=== PATIENT | female | born 1985 | race Caucasian/White ===

== ENCOUNTER 2016-09-26 19:41 | Emergency (ER) | payer OTHER ==
[~2016-09-26] VITALS: Ht 167.6 cm; Wt 140.0 kg
[~2016-09-26 19:41] MED LIST: PREN1TAB49 PO
[2016-09-26 20:14] VITALS: Ht 167.6 cm; Wt 140.0 kg
--- NOTE | 2016-09-26 20:27 | ERD ---
ER Documentation Chief Complaint Date/Time DATE: 09/26/16 TIME: 20:22 Chief Complaint Bug bite 7 days ago. Cellulitis HPI 11-year-old female who presents to the emergency room for near right shoulder/ neck possible bug bite or cellulitis. Patient stated that this started about 7 days ago and swelling is increased gradually. She stated that she probably does need some antibiotics. Denies headache, loss of consciousness, dizziness, blurry vision, changes in vision, photophobia, pain on eye movement, facial pain, ear pain, throat pain, difficulty swallowing, neck pain, neck stiffness, shoulder pain, chest pain, cough, hemoptysis, abdominal pain, back pain, loss of appetite, nausea, vomiting , hematochezia, diarrhea, constipation, urinary symptoms, , the possibility of being , bladder and bowel incontinences, extremity weakness, extremity tenderness, numbness or tingling sensation, difficulty walking, recent travel, recent exposure to illness, recent antibiotic use in the last 3 months, fever, chills. LMP: 09/09/2016 A1 Allergies: No known allergies. Past medical history: Denies. Medication: Ibuprofen. Surgery: 1. 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 Denies smoking, use of alcohol, use illicit drugs. ROS All systems reviewed and are negative except as per history of present illness. Medications Home Meds Active Scripts Ibuprofen* (Motrin*) 800 Mg Tab, 800 MG PO Q6H Y for PAIN AND OR ELEVATED TEMP, #30 TAB Prov:VALERIEILANAUNSAMNATACHA F 09/26/16 Acetaminophen* (Tylenol*) 325 Mg Tablet, 2 TAB PO Q6 Y for PAIN AND OR ELEVATED TEMP, #20 TAB Prov:VALERIEILANAUNSAMNATACHA F 09/26/16 Sulfamethoxazole-Trimethoprim* (Bactrim* DS) 800-160 Mg Tab, 1 TAB PO BID for 7 Days, TAB Prov:VALERIEILANAUNSAMNATACHA F 09/26/16 Cephalexin* (Cephalexin*) 500 Mg Capsule, 500 MG PO Q6 for 7 Days, #28 CAP Prov:PASILABANSAMNATACHA F 09/26/16 Reported Medications Vits W-Ca,Fe,Fa(<1MG) () 1 Tab Tablet, 1 TAB PO DAILY 03/15/11 Allergies Allergies: Coded Allergies: No Known Allergies (Verified Allergy, 03/15/11) Physical Exam Vitals Vital Signs Date Time Temp Pulse Resp B/P Pulse Ox O2 Delivery O2 Flow Rate FiO2 09/26/16 20:14 98.6 86 20 113/71 97 Physical Exam CONSTITUTIONAL: Well-appearing; well-nourished; in no apparent distress. HEAD: Normocephalic; atraumatic. EYES: Conjunctiva clear, sclera non-icteric, EOM intact. PERRL. No pain on eye movement. Patient was observed comfortable. Able to text. Able to read. No neurologic deficits. Ears: Hearing intact. EACs clear, TMs non-bulging, non-inflamed, translucent & mobile, ossicles normal appearance, No obstructions, no erythema, no discharges Nose: No obstructions. No polyps. No external lesions. Mucosa non-inflamed. No external lesions, septum and turbinates normal. No rhinorrhea. No discharges. Frontal sinus is non-tender to palpation. Maxillary sinus is non-tender to palpation. MOUTH: Moist mucous membranes, no lesion, no obstructions, no vesicles, no thrush, patent airway Throat: Uvula in midline. Right tonsil is +1 with no erythema, no exudate. Left tonsil is +1 with no erythema, no exudate. Tolerating secretions well. Good gag reflex. Patent airway. Neck: Supple, without lesions, bruits, or adenopathy. No mass. Thyroid non- enlarged and non-tender to palpation. Good and full range of motion of neck and spine without pain/swelling/discoloration. CHEST: Symmetrical chest. Respirations even and not labored. No retractions noted. CARDIOVASCULAR: Normal S1, S2. RRR. No murmurs, gallops. RESPIRATORY: Normal chest excursion with respiration; breath sounds clear and equal bilaterally; no wheezes, rhonchi, or rales. Breathing even and unlabored. Speaking in clear, full, and complete sentences w/ ease. ABDOMEN: Normal bowel sounds normal. Soft, round, non-distended, non-guarding, no tenderness, no rebound, no organomegaly, no masses, no pulsating abdominal mass. No hernia. No peritoneal signs. : No CVA tenderness. BACK: Symmetrical shoulder. Spine is midline without deformity, tenderness. No evidence of trauma or deformity. PELVIS: Stable pelvis. No evidence of trauma or deformity. MUSCULOSKELETAL: Normal gait and station. No misalignment, asymmetry, crepitation, defects, tenderness, masses, effusions, decreased range of motion, instability, atrophy or abnormal strength or tone in the head, neck, spine, ribs , pelvis or extremities. No calf tenderness. NEUROVASCULAR: Distal pulses are present. Pedal pulse are present, equal, and normal. Capillary refills are < 2 seconds. NEUROLOGIC: Alert and oriented x4. Speaks full and clear sentences. Cranial Nerves II-XII normal. Sensation to pain, touch, and proprioception normal. Grossly unremarkable. No neurologic deficits. Romberg test is negative. PSYCHOLOGICAL: The patients mood and manner are appropriate. No hallucinations , delusions. Not SI. Not HI. Has the capacity to decide for self SKIN: Normal for age and ethnicity; warm; dry; good turgor; no apparent lesions or exudates. No rashes, hives, discoloration. Intact. Swelling and redness to anterior right shoulder measuring about 2 cm x 3 cm. No induration. No bleeding. My with a marker for observation if swelling/redness is increased. Patient instructed well to observe for increase in swelling/redness. Procedures/MDM Examination: Please see physical examination. Disease process, medical treatment was explained to the patient and family member. They verbalized understanding and agreed with the medical treatment, and follow-up care. Consultation: None. Differential diagnosis: Cellulitis versus infected insect bite Medical decision makin-year-old female who presents to the emergency room for near right shoulder/neck possible bug bite or cellulitis. Patient stated that this started about 7 days ago and swelling is increased gradually. She stated that she probably does need some antibiotics. Measures about 2-3 cm no induration. No nuchal rigidity. Extraocular movement of the eyes good. No pain on eye movement. Patient's complaint, patient's history about her complaint, my physical findings are consistent with my final diagnosis of insect bite, cellulitis. Medications prescribed are the following: Keflex. Bactrim. Tylenol. Motrin. Patient and family member are made aware of the side effects and adverse reactions of the medications prescribed. Instructed on when to seek emergent and medical attention in case allergic/anaphylactic reactions or severe side effects and or adverse reactions to medications. Patient and family member verbalized understanding. Patient instructed Instructed to follow-up with his PCP in 24-48 hours. Instructed to come back in 2 days for cellulitis/insect bite/bug bite check. Also instructed to observe if swelling/redness has increased or gone over the marked area. Patient stated that she will make sure that she will observe for increased in swelling/redness. Instructed to Call 911 for chest pain, shortness of breath. Advised to come back here in ED as soon as possible for severity of symptoms which includes but not limited to: any new symptoms; shortness of breath/difficulty of breathing; cardiovascular changes; severe gastrointestinal symptoms; signs and symptoms of bleeding and or infection; signs of compartment syndrome/neurovascular changes; neurological changes/deficits. Patient and family member verbalized understanding. Upon discharge, patient is alert and oriented x 4, speaks full and clear sentences, denies pain, has no neurological deficits, has no neurovascular deficits, difficulty of breathing. No changes in vision. No pain on eye movement. Extraocular movement of her eyes is good. Good and full range of motion of neck and spine without pain/swelling/discoloration/deformity. Breathing even and unlabored. Lung sounds are clear to auscultation. Not in distress. Appears comfortable. Ambulatory with steady gait. Appears satisfied with care provided here in ED. Departure Diagnosis: Primary Impression: Cellulitis Site of cellulitis: neck Qualified Code: L03.221 - Cellulitis of neck Additional Impression: Bug bite Condition: Good Additional Instructions: Patient instructed Instructed to follow-up with his PCP in 24-48 hours. Instructed to come back in 2 days for cellulitis/insect bite/bug bite check. Also instructed to observe if swelling/redness has increased or gone over the marked area. Patient stated that she will make sure that she will observe for increased in swelling/redness. Instructed to Call 911 for chest pain, shortness of breath. Advised to come back here in ED as soon as possible for severity of symptoms which includes but not limited to: any new symptoms; shortness of breath/difficulty of breathing; cardiovascular changes; severe gastrointestinal symptoms; signs and symptoms of bleeding and or infection; signs of compartment syndrome/neurovascular changes; neurological changes/deficits. Patient and family member verbalized understanding. DARLYN CARVAJAL Sep 26, 2016 20:27
[2016-09-26] MEDS ORDERED: CEPH500C PO (20:29)
[2016-09-26] MEDS ORDERED: BACTDS PO (20:29)
[2016-09-26] MEDS ORDERED: ACET325T33 PO (20:30)
[2016-09-26] MEDS ORDERED: IBUP800T25 PO (20:30)
== END 2016-09-26 20:31 | disposition home or self-care (01) ==
LOC: E/R 19:41
DX: L03.221 Cellulitis of neck (principal); W57.XXXA Bitten or stung by nonvenomous insect and other nonvenomous arthropods, initial encounter; Y92.9 Unspecified place or not applicable
CPT/HCPCS: 99283